=== PATIENT | female | born 1950 | race Caucasian/White ===

== ENCOUNTER → 2024-09-23 | Day surgery (SDC) | payer MEDICARE, OTHER ==
[~2024-09-23] MED LIST: ACETAMINOPHEN 1000 MG/100 ML 100 ML IV ONE; BIOTIN1 MG PO; CHROMIUM PO; CO Q-1010 MG PO; CRESTOR40 MG PO; D3 PLUS K2 DOT1 EACH PO; DEXAMETHASONE SOD PHOS INJ 4 MG/ML SDV ONE; EPHEDRINE SULFATE INJ 50 MG/ML VIAL ONE; FAMOTIDINE 20 MG/2 ML VIAL IV ONE; FENTANYL CITRATE/PF 100MCG/2 ML INJ ONE; LIDOCAINE HCL 2% LOCAL INJ 5 ML SDV VIAL INJ ONE; MAGNESIUM OXID400 MG PO; MILK THISTLE175 M2 PO; MULTI-VITAMIN1 EACH PO; POTASSIUM CHLO10 ME1 PO; PROPOFOL IV EMULSION 10 MG/ML 20 ML VIAL ONE; ROCURONIUM BROMIDE 0 ML IV ONE; SEVOFLURANE INHAL SOLN 250 ML PEN BTL ONE; SUCCINYLCHOLINE CHLORIDE 20 MG/ML 10ML VIAL ONE; TURMERIC500 M1 PO
[2024-09-23] MEDS: ONDANSETRON HCL INJ 2MG/ML 2ML 2 MG/ML VIAL ONE (14:04)
[2024-09-23 14:10] VITALS: BP 128/72; PULSE 86; RESP 17; O2SAT 96
== END | disposition home or self-care (01) ==
LOC: OR 08:37
PROVIDERS: ATTEND Otolaryngology Otolaryngology/Facial Plastic Surgery
DX: C82.11 Follicular lymphoma grade II, lymph nodes of head, face, and neck (principal); E78.5 Hyperlipidemia, unspecified; Z01.810 Encounter for preprocedural cardiovascular examination; Z87.891 Personal history of nicotine dependence; Z88.5 Allergy status to narcotic agent
CPT/HCPCS: 42420; 71046; 88305; 93005; J0131; J0330; J1100; J1308; J2003; J2405; J2704; J3010; 88304